=== PATIENT | female | born 1975 | race Caucasian/White ===

== ENCOUNTER 2018-12-12 23:11 | Inpatient (IN) | payer OTHER ==
[~2018-12-12] VITALS: Ht 154.9 cm; Wt 54.4 kg
--- NOTE | 2018-12-13 00:03 | NUR ---
PACIENTE ALERTA REFIERE DOLOR ABDOMINAL , PACIENTE TIENEN ESTUDIO DEL RIGO DE HOY QUEIN LE REFIERE RADIOLOGO LLEGARA AUNA KADEN D EEMERGENCIAS PARA RECIBIR TARTAMINETO.
--- NOTE | 2018-12-13 01:20 | NUR ---
MISS. FIGUEROA ORIENTA A PACIENTE SOBRE TRATAMIENTO. MANOJ MUESTRAS DE LABORATORIO ORDENADAS. CANALIZA CON AREA DE VENOPUNCION GAIL DE EDEMA O ENROJECIMIENTO. ADMINISTRA MEDICAMENTOS ORDENADOS. SE MANTIENE EN OBSERVACION POR CAMBIOS.
== END 2018-12-18 14:07 | disposition home or self-care (01) | DRG 392 ==
LOC: ER 23:11 → MEDJ 12-13 07:12
PROVIDERS: ADMIT Surgery
PROC: BW21Y0Z Computerized Tomography (CT Scan) of Abdomen and Pelvis using Other Contrast, Unenhanced and Enhanced (ICD-10-PCS; principal; 2018-12-15)
DX: K57.20 Diverticulitis of large intestine with perforation and abscess without bleeding (principal)

== ENCOUNTER 2019-01-26 08:52 | Emergency (ER) | payer OTHER ==
[~2019-01-26] VITALS: Ht 154.9 cm; Wt 50.3 kg
== END 2019-01-26 11:53 | disposition home or self-care (01) ==
LOC: ER 08:52
DX: R19.7 Diarrhea, unspecified (principal)

== ENCOUNTER 2019-03-29 06:30 | Day surgery (SDC) | payer OTHER | END 2019-03-29 10:35 | disposition home or self-care (01) | LOC: AMB-ENDOS 06:30 | DX: K57.32 Diverticulitis of large intestine without perforation or abscess without bleeding (principal); K57.30 Diverticulosis of large intestine without perforation or abscess without bleeding ==

== ENCOUNTER 2024-01-31 10:37 | Inpatient (IN) | payer OTHER ==
[~2024-01-31] VITALS: Ht 154.9 cm; Wt 53.5 kg
[2024-02-06] MEDS ORDERED: BUPIVACAINE HCL 30 ML VIAL IJ ONE (13:00)
[2024-02-06] MEDS ORDERED: CEFTRIAXONE SODIUM 2,000 MG VIAL IV ONE (13:00)
[2024-02-06] MEDS ORDERED: LIDOCAINE HCL 1%/EPINEPHRINE 20ML VIAL IJ ONE (13:00)
[2024-02-06] MEDS ORDERED: METRONIDAZOLE/SODIUM CHLORIDE 5 MG/ML ML IV ONE (13:00)
[2024-02-06] MEDS ORDERED: SUGAMMADEX SODIUM 200 MG/2 ML VIAL IV ONE (13:15)
[2024-02-06] MEDS ORDERED: RINGERS SOLUTION,LACTATED 1,000 ML IV SCH (14:45)
[2024-02-06] MEDS ORDERED: ONDANSETRON HCL 2 MG/ML VIAL IV PRN (14:45)
[2024-02-06] MEDS ORDERED: MORPHINE SULFATE 4 MG/ML CARTRIDGE IV PRN (14:45)
[2024-02-06] MEDS ORDERED: OxyCODONE HCL 5 MG TABLET (ROXICODONE) PO PRN (14:45)
[2024-02-06 16:04] LABS: HEMATOCRIT 37.1 % (36.0-45.00); HEMOGLOBIN 12.5 g/dL (12.0-15.00); MEAN CELL VOLUME 93.4 fL (80.00-100.00); MEAN CORPUSCULAR HEMOGLOBIN 31.4 pg (27.00-32.0); MEAN CORPUSCULAR HGB CONC 33.6 g/dl (32.0-36.0); PLATELET COUNT 196 K/uL (150-450); RED BLOOD COUNT 3.97 M/uL (4.00-6.00); RED CELL DISTRIBUTION WIDTH 12.5 % (11.5-14.5)
[2024-02-06] MEDS ORDERED: POLYETHYLENE GLYCOL 3350 17 GM BLIST.PACK PO SCH (17:00)
[2024-02-06] MEDS ORDERED: GABAPENTIN 300 MG CAPSULE PO SCH (17:00)
[2024-02-06] MEDS ORDERED: METOCLOPRAMIDE HCL 5 MG/ML VIAL IV SCH (17:00)
[2024-02-06] MEDS ORDERED: SIMETHICONE 125 MG CAPSULE PO SCH (17:00)
[2024-02-06] MEDS ORDERED: HYOSCYAMINE SULFATE 0.125 MG TAB.SUBL SL SCH (17:00)
[2024-02-06 18:20] VITALS: BP 124/68; O2SAT 99
[2024-02-06] MEDS ORDERED: ACETAMINOPHEN 500 MG GEL..CAP PO SCH (20:00)
[2024-02-06] MEDS ORDERED: FAMOTIDINE/PF 20 MG/2 ML VIAL IV PUSH SCH (21:00)
[2024-02-06] MEDS ORDERED: CELECOXIB 200 MG CAPSULE PO SCH (21:00)
[2024-02-07 00:11] VITALS: BP 108/62; O2SAT 100
[2024-02-07 06:57] LABS: HEMATOCRIT 34.5 % (36.0-45.00); HEMOGLOBIN 11.9 g/dL (12.0-15.00); MEAN CELL VOLUME 91.3 fL (80.00-100.00); MEAN CORPUSCULAR HEMOGLOBIN 31.5 pg (27.00-32.0); MEAN CORPUSCULAR HGB CONC 34.5 g/dl (32.0-36.0); PLATELET COUNT 183 K/uL (150-450); RED BLOOD COUNT 3.77 M/uL (4.00-6.00); RED CELL DISTRIBUTION WIDTH 12.7 % (11.5-14.5)
[2024-02-07 07:45] LABS: CALCIUM 8.5 mg/dL (8.5-10.1); CREATININE SERUM 0.62 mg/dL (0.55-1.02); GFR 102.31; POTASSIUM 4.81 mEq/L (3.5-5.1)
[2024-02-07 08:00] VITALS: BP 105/67; O2SAT 97
[2024-02-07 16:16] VITALS: BP 122/67; O2SAT 98
[2024-02-07] MEDS ORDERED: ENOXAPARIN SODIUM 40 MG/0.4 ML SYRINGE SUBCUTANEO SCH (17:00)
[2024-02-08 01:43] VITALS: BP 101/57; O2SAT 97
[2024-02-08 07:03] LABS: HEMATOCRIT 29.2 % (36.0-45.00); HEMOGLOBIN 10.3 g/dL (12.0-15.00); MEAN CELL VOLUME 91.3 fL (80.00-100.00); MEAN CORPUSCULAR HEMOGLOBIN 32.3 pg (27.00-32.0); MEAN CORPUSCULAR HGB CONC 35.3 g/dl (32.0-36.0); PLATELET COUNT 154 K/uL (150-450); RED CELL DISTRIBUTION WIDTH 12.3 % (11.5-14.5)
[2024-02-08 07:50] LABS: CALCIUM 8.2 mg/dL (8.5-10.1); CREATININE SERUM 0.54 mg/dL (0.55-1.02); GFR 119.99; MAGNESIUM 1.8 mg/dL (1.8-2.4); POTASSIUM 4.25 mEq/L (3.5-5.1)
[2024-02-08 08:19] LABS: PHOSPHOROUS 1.7 mg/dL (2.5-4.9)
[2024-02-08 08:24] VITALS: BP 140/88; O2SAT 99
[2024-02-08] MEDS ORDERED: ENOXAPARIN SODIUM 40 MG/0.4 ML SYRINGE SUBCUTANEO SCH (09:00)
[2024-02-08] MEDS ORDERED: POTASSIUM PHOS,M-BASIC-D-BASIC 3 MM/ML VIAL IV NR (10:15)
[2024-02-08] MEDS ORDERED: HYOSCYAMINE0.125 M1 SL (14:21)
[2024-02-08] MEDS ORDERED: CELEBREX200MG PO (14:21)
[2024-02-08] MEDS ORDERED: INTESTINEX680 M1 PO (14:22)
== END 2024-02-08 17:22 | disposition home or self-care (01) | DRG 331 ==
LOC: O/R 02-06 07:15 → SURH 02-06 11:15 → SURG 02-06 15:18 → SURH 02-06 16:40
PROVIDERS: Internal Medicine Geriatric Medicine; ADMIT Surgery; ATTEND Surgery
PROC: 0DBP4ZZ Excision of Rectum, Percutaneous Endoscopic Approach (ICD-10-PCS; 2024-02-06)
PROC: 0DTJ4ZZ Resection of Appendix, Percutaneous Endoscopic Approach (ICD-10-PCS; 2024-02-06)
PROC: 0DJD8ZZ Inspection of Lower Intestinal Tract, Via Natural or Artificial Opening Endoscopic (ICD-10-PCS; 2024-02-06)
PROC: 0DBW4ZX Excision of Peritoneum, Percutaneous Endoscopic Approach, Diagnostic (ICD-10-PCS; 2024-02-06)
PROC: 0DTN4ZZ Resection of Sigmoid Colon, Percutaneous Endoscopic Approach (ICD-10-PCS; principal; 2024-02-06 11:15)
DX: K57.20 Diverticulitis of large intestine with perforation and abscess without bleeding (principal); K62.4 Stenosis of anus and rectum; N73.6 Female pelvic peritoneal adhesions (postinfective); N99.4 Postprocedural pelvic peritoneal adhesions; R59.0 Localized enlarged lymph nodes